=== PATIENT | female | born 1965 | race Caucasian/White ===

== ENCOUNTER → 2019-07-11 14:52 | Outpatient (CLI) | payer OTHER, SELFPAY ==
--- NOTE | 2019-07-11 15:00 | US_ITS ---
STUDY: THYROID ULTRASOUND REASON FOR EXAM: Female, 54 years old. Palpable nodule TECHNIQUE: Ultrasound evaluation of the thyroid was performed with real-time and static lenz-scale imaging. COMPARISON: None. FINDINGS: RIGHT LOBE: The right lobe of the thyroid gland measures 4.1 x 1.4 x 1.3 cm. There is a homogeneous echotexture. 2 separate solid hypoechoic nodules. Larger measures 0.4 x 0.5 x 0.3 cm, smaller 0.3 x 0.2 x 0.27 m. LEFT LOBE: The left lobe of the thyroid gland measures 4.0 x 1.5 x 1.1 cm. There is a homogeneous echotexture. There is a hypoechoic solid 0.3 x 0.3 x 0.2 cm nodule ISTHMUS: The isthmus measures 0.3 cm. The regional lymph nodes are normal. At patient's palpable lump, there is only normal thyroid tissue noted measuring 1.6 x 0.4 x 0.6 cm. US/Thyroid IMPRESSION: Normal-sized homogeneous thyroid gland with bilateral hypoechoic subcentimeter nodules. These nodules are likely too small to evaluate with thyroid uptake study. Six-month follow-up recommended to ensure stability, if they should change in size or number, further evaluation with uptake study or biopsy would be recommended Electronically Signed: Michael Paulino MD at 8:51 EDT , Service support ,
== END ==
PROVIDERS: Family Provider Family Medicine; PCP Family Medicine; Referring Provider Nurse Practitioner Family; Visit Provider Nurse Practitioner Family
DX: E04.1 Nontoxic single thyroid nodule (principal)
CPT/HCPCS: 76536

== ENCOUNTER → 2024-07-15 | Outpatient (CLI) | payer SELFPAY ==
[2024-07-15 12:47] LABS: Absolute Lymphocyte Count 1.61 X10^3/uL (0.83-4.51); Absolute Neutrophil Count 2.4 X10^3/uL (2.0-7.7); Basophil# 0.06 X10^3/uL; Basophil% 1.3 % (0-1); Eosinophil# 0.15 X10^3/uL; Eosinophils% 3.2 % (0-5); Hematocrit 43.4 % (37-47); Hemoglobin 14.5 g/dL (12.0-15.0); Lymphocyte # 1.61 X10^3/ul (0.83-4.51); Lymphocyte % 34.6 % (19-41); Mean Corp Hgb Conc 33.4 g/dL (32-36); Mean Corpuscular Hgb 29.7 pg (27.0-32.0); Mean Corpuscular Volume 88.9 fL (81-99); Monocyte# 0.39 X10^3/uL; Monocyte% 8.4 % (0-10); NRBC Flagged by Analyzer 0 % (0-5); Neutrophil % 51.6 % (47-70); POSITIVE COUNT YES; RBC Distribution Width CV 12.8 % (11.6-14.6); RBC Distribution Width SD 42.3 fl (35.1-43.9); Red Blood Count 4.88 M/mm3 (4.2-5.4); White Blood Count 4.7 K/mm3 (4.4-11.0)
[2024-07-15 13:01] LABS: Vitamin B12 465 pg/mL (211-911); Vitamin D,25 Hydroxy 49.6 ng/mL
[2024-07-15 13:49] LABS: ALB/GLOB Ratio 1.3 RATIO (0.9-2.4); AST(SGOT) 26 U/L (15-37); Alanine Aminotransfer ALT/SGPT 34 U/L (13-56); Albumin, Serum 4.4 g/dL (3.2-5.0); Alkaline Phosphatase 87 U/L (45-117); Anion Gap 8 (5-15); BUN 7 mg/dL (7-18); BUN/Creat Ratio 10.8 RATIO (10-20); Calcium,Total 9.7 mg/dL (8.5-10.1); Chloride 103 mmol/L (98-107); Cholesterol 216 mg/dL (200); Creatinine, Serum 0.65 mg/dL (0.55-1.02); EST Glomerular Filtration Rate 100 mL/min (>60); Est Glom Filt Rate - Afr Amer 121 mL/min (>60); Ferritin 28 ng/mL (8-252); Globulin 3.4 g/dL (2.2-4.2); Glucose 98 mg/dL (74-106); High Density Lipoprotein 70 mg/dL; Iron 87 ug/dL (50-170); Protein, Total 7.8 g/dL (6.4-8.2); Sodium Level 137 mmol/L (136-145); Triglycerides 111 mg/dL; Very Low Density Lipoprotein 22 mg/dL (5-40)
[2024-07-15 13:54] LABS: Hemoglobin A1c 5.2 % (3.8-5.6)
[2024-07-15 14:03] LABS: Differential Indicated SCAN CRITERIA MET
[2024-07-15 14:04] LABS: Platelet Estimate ADEQUATE (ADEQ)
[2024-07-16 06:09] LABS: DHEA Sulfate 91.7 ug/dL (29.4-220.5); PROGESTERONE 0.3 ng/mL (.)
== END | disposition home or self-care (01) ==
PROVIDERS: PCP Family Medicine; Referring Provider Nurse Practitioner Family; Visit Provider Nurse Practitioner Family
DX: I10 Essential (primary) hypertension (principal); M79.673 Pain in unspecified foot; R53.83 Other fatigue; K59.00 Constipation, unspecified; E28.9 Ovarian dysfunction, unspecified
CPT/HCPCS: 80053; 80061; 82306; 82607; 82627; 82670; 82728; 82746; 83036; 83540; 84144; 84403; 85025; 82626

== ENCOUNTER → 2025-03-13 | Outpatient (CLI) | payer SELFPAY ==
--- NOTE | 2025-03-13 10:13 | BI_ITS ---
EXAM: SCRN MAMM (CAD)W/EVELIA BILAT 03/13/2025 CLINICAL HISTORY: F, Age 59 y/o , SCREENING TECHNIQUE: Bilateral screening digital breast tomosynthesis with 2D and 3D images. Computer aided detection. COMPARISON: Prior exam(s) dated 04/22/2024, 10/17/2023, 09/26/2023. FINDINGS: TISSUE DENSITY: The breast tissue is composed of scattered area of fibroglandular density. Bilateral Breast Mammographic Findings: No significant masses, calcifications or other abnormalities are identified. BI/SCRN MAMM (CAD)W/EVELIA BILAT IMPRESSION: Right Breast: BIRADS 1 NEGATIVE. Left Breast: BIRADS 1 NEGATIVE. OVERALL FINAL ASSESSMENT: BIRADS 1 NEGATIVE. RECOMMENDATION: Routine annual follow-up in 1 Year A letter with findings and recommendations will be mailed to the patient. Reading Location: [id number]
== END | disposition home or self-care (01) ==
LOC: OPBI 10:09
PROVIDERS: PCP Family Medicine; Referring Provider Family Medicine; Visit Provider Family Medicine
DX: Z12.31 Encounter for screening mammogram for malignant neoplasm of breast (principal)
CPT/HCPCS: 77063; 77067